=== PATIENT | female | born 1995 | race African-American/Black ===

== ENCOUNTER 2018-04-01 16:10 | Outpatient (CLI) | payer BC, OTHER | END 2018-04-01 16:11 | disposition home or self-care (01) | LOC: BICULT 16:10 | PROVIDERS: ATTEND Family Medicine | DX: M79.89 Other specified soft tissue disorders (principal) ==

== ENCOUNTER 2018-05-17 17:20 | Day surgery (SDC) | payer BC, OTHER ==
[2018-05-17 17:54] VITALS: BP 116/67; TEMP 98.9; BMI 26.9
--- NOTE | 2018-05-17 18:27 | PDOC.LDHP ---
Labor and Delivery H&P Chief complaint: loss of fluid HPI: 23 yo at 31.0w by 13.3w julio cesaro here with cc of LOF since this afternoon. She stood up at home and noted her underwear to be wet. It did not have any odor. She then had this happen on a 2nd pair of underwear and at that time called our on-call pager and was instructed to come in. She is feeling baby move , denies vaginal bleeding. She notes the discharge to be white-mucus type consistency and notes numerous yeast infections with her last . Current gestational age (weeks): 31 (31.0) Due date: 07/19/18 Dating criteria: first trimester ultrasound Grav: 5 Para: 1 (1031) Current complications: none Abnormal US findings: Yes (concern for 2VC but 3VC confirmed by MFM) Past Medical History: depression Current medications: pre-lloyd vitamins Previous surgical history: low tranverse CS, dilation and curettage Social history: none - Physical Exam Vital signs reviewed and normal: yes General: resting Heart: RRR Lungs: CTAB Abdomen: NTTP Extremeties: no edema FHT: category 1 (130/mod/+accel/no decel) [place] contractions every: none - OB Labs Blood type: A RH: positive Antibody Screen: negative HIV: negative RPR: negative HEPSAg: negative 1 hour GCT: negative GBS: unknown Rubella: immune - Assessment 23 yo F presents with vaginal discharge c/w yeast and BV 1. Vaginal discharge - No pooling or fluid with valsalva - No ferning - Will send flagyl and fluconazole - VP3 pending, will notify if any results warrant change in plan Return precautions discussed. F/u in clinic next week with Dr. Mireles <Snow Cm - Last Filed: 05/17/18 19:37> <Janis Yepez - Last Filed: 05/17/18 19:55> Allergies/Adverse Reactions: Allergies Allergy/AdvReac Type Severity Reaction Status Date / Time No Known Allergies Allergy Verified 05/17/18 17:55 Attending Addendum - Attending Addendum Date/Time: 05/17/181952 I personally evaluated the patient and discussed the management with Dr. Cm. I agree with the History, Examination, Assessment and Plan documented above with any addition or exceptions noted below. No clinical evidence of ROM on exam. Agree with d/c to home with precautions. <Janis Yepez - Last Filed: 05/17/18 19:55>
== END 2018-05-17 19:40 | disposition home or self-care (01) ==
LOC: L&D/OP 17:20
PROVIDERS: ATTEND Student in an Organized Health Care Education/Training Program
DX: O99.89 Other specified diseases and conditions complicating pregnancy, childbirth and the puerperium (principal); N89.8 Other specified noninflammatory disorders of vagina; Z3A.31 31 weeks gestation of pregnancy; Z79.899 Other long term (current) drug therapy
CPT/HCPCS: 87480; 87510; 87660; 99283

== ENCOUNTER 2018-07-19 12:46 | Inpatient (IN) | payer BC, OTHER ==
[2018-07-21] MEDS ORDERED: Promethazine HCl 25 MG/ML VIAL IM PRN (22:34)
[2018-07-21] MEDS ORDERED: Ondansetron PF 4 MG/2 ML Vial IVP PRN (22:34)
--- NOTE | 2018-07-21 22:49 | PDOC.FPROB ---
R OB H&P: HPI - History of Present Illness Chief Complaint: IOL History of Present Illness: 23 yo @ 40.2 wks by 13.3 wk sono presents for IOL. Denies contractions, vaginal bleeding, discharge. Denies current HSV lesions. Reports movement. Primary Care Physician: Haylee R OB H&P: Current - Care : 5 Para: 1 Gestational age: 40.2 Due date: 07/19/2018 Dating Criteria: 13.3 wk sono - OB Labs Blood type: A RH: positive Antibody Screen: negative HIV: negative RPR: negative HepBsAg: negative Rubella: immune Quad screen: negative Urine drug screen: not done Gonorrhea: negative Chlamydia: negative Pap Smear: 12/2017 1 hour gtt: 88 GBS: negative (@ 35.4) - First Trimester Ultrasound First trimester: 13.3 wk sono at [facility] FMR OB H&P: History - Past Medical History PMH: Genital HSV - OB History OB History: 1: 2016 @ 41.2 wks for NRFHT 2: 7.6 wk elective - ACLS NURSE History ACLS NURSE History: pap smear done 01/15/2018 - Surgical History Sx History: LTCS 2016 - Social History Social History: Denies tobacco, alcohol, drug use. - Family History Family History: Denies R OB H&P: Medications - Current Home Medications: Medication Instructions Recorded Confirmed Type 21/Iron Fu/Folic Acid 1 tab PO DAILY 05/02/16 07/21/18 History [ Complete Caplet] Allergies/Adverse Reactions: Allergies Allergy/AdvReac Type Severity Reaction Status Date / Time No Known Allergies Allergy Verified 07/21/18 23:08 R OB H&P: ROS - Review of Systems Genitourinary (Female): denies: vaginal discharge, vaginal pain, vaginal bleeding, contractions, vaginal pressure FMR OB H&P: Vital Signs - Maternal Vital signs: 115/86, 101 - Heart Tones Baseline: 135 Variability: moderate Acceleration: present Deceleration: absent Category: category 1 [place] contractions every: none FMR OB H&P: Physical Exam - Physical Exam General: awake, alert and oriented HEENT: normocephalic and atraumatic Heart: RRR, normal S1/S2, no murmurs/rubs/gallops General: CTAB, no respiratory distress Abdomen: gravid, non-tender Skin: capillary refill <2 seconds - Pelvic Exam Vulva: no discharge, no blood SVE: 0/0/-3, soft, midposition FMR OB H&P: A/P - Problem List (1) Term Status: Acute Code(s): Z34.80 - ENCOUNTER FOR SUPRVSN OF NORMAL , UNSP TRIMESTER (2) Status post primary low transverse section Status: Acute Code(s): Z98.89 - OTHER SPECIFIED POSTPROCEDURAL STATES * DO NOT USE * (3) History of herpes genitalis Status: Chronic Code(s): Z86.19 - PERSONAL HISTORY OF OTHER INFECTIOUS AND PARASITIC DISEASES Discussion: Date/Time: 07/21/182247 IOL - @ 40.2 by 13.3 wk sono. EDC 07/19/18. - GBS neg @ 35.4 wk - plan for balloon induction considering TOLAC. Unsure if will be able to pass catheter considering closed cervix. Genital HSV - on acyclovir ppx - no lesions on exam Hx of LTCS 2/2 NRFHT with compound presentation microcephaly - BPD and HC <2%tile on MFM sono 06/13/2018 - MFM not concerned for microcephaly and recommends measurements of head at delivery and days after to determine true microcephaly - sono 07/08/18 @ 38.3 wks showed BRANDIN @ upper limit normal (19.9), placenta anterior, EFW 34.1%tile TORCH labs Toxoplasma IgG - non reactive CMV IgG - positive Varicella IgG- positive Parvovirus IgG- negative Parvovirus IgM- negative This H&P was discussed with Dr. Blackwood who agree with the above documentation and plan. Attending Addendum - Attending Addendum Date/Time: 07/22/18 3502 I personally evaluated the patient and discussed the management with Dr. Andino at time of admission and discharge. I agree with the History, Examination, Assessment and Plan documented above with any addition or exceptions noted below.
[2018-07-21 23:24] VITALS: BP 115/86; TEMP 98.5; BMI 29.3
[2018-07-21 23:54] LABS: Hemoglobin 11.8 g/dL (12.0-16.0); Mean Corpuscular HGB CONC 34.7 g/dL (32.0-36.0); Mean Corpuscular Hemoglobin 34.9 pg (27.0-31.0); Mean Platelet Volume 7.5 fL (7.4-10.4); Platelet Count 275 thou/uL (130-400); RBC Distribution Width 11.6 % (11.5-14.5); Red Blood Cell (RBC) Count 3.38 mill/uL (4.20-5.40); White Blood Cell (WBC) Count 12.5 thou/uL (4.8-10.8)
[2018-07-22 00:34] LABS: HBSAg Index 0.22 S/CO (0-0.99); Hep B Surf Ag Non-Reactive S/CO (NonReactive); Syphilis Antibody Nonreactive (Nonreactive); Syphilis Antibody Index 0.06 S/CO (<1.00 Non-Reactive)
--- NOTE | 2018-07-22 00:40 | PDOC.EVN ---
Event Note - Event Note Event Note: After exam, I discussed The plan of care with Angelita. She expressed reluctance towards the balloon induction, and was still trying to decide between a delivery or . She really only wanted to try for a vaginal if she went into labor on her own, She desired to wait for spontaneous labor but noted that she wanted to follow Dr. Mireles's recommendation to not go past 41 weeks. After discussing risks/benefits/ options with her, she prefers to not have balloon induction tonight, but wait for spontaneous labor until Saturday. If labor begins before Saturday, she donna like to proceed with TOLAC; but if it doesn't, she would like a delivery on Saturday. We have scheduled her for this Saturday at 9am. Angelita's vitals are normal and the FHTs are Cat I.
== END 2018-07-22 01:13 | disposition home or self-care (01) | DRG 832 ==
LOC: L&D 07-21 22:04
PROVIDERS: ADMIT Family Medicine; ATTEND Family Medicine
DX: O48.0 Post-term pregnancy (principal); O98.313 Other infections with a predominantly sexual mode of transmission complicating pregnancy, third trimester; O34.219 Maternal care for unspecified type scar from previous cesarean delivery; Z3A.40 40 weeks gestation of pregnancy; Z53.8 Procedure and treatment not carried out for other reasons; O35.8XX0 Maternal care for other (suspected) fetal abnormality and damage, not applicable or unspecified; Z79.899 Other long term (current) drug therapy
CPT/HCPCS: 85027; 86780; 86850; 86900; 86901; 87340

== ENCOUNTER 2018-07-25 06:57 | Inpatient (IN) | payer BC, OTHER ==
[2018-07-25] MEDS: Lactated Ringer's 1,000 ML IV SCH ×2 (07:25→21:03)
[2018-07-25] MEDS ORDERED: Ondansetron PF 4 MG/2 ML Vial IVP PRN ×2 (07:50→09:48)
[2018-07-25] MEDS ORDERED: Promethazine HCl 25 MG/ML VIAL IM PRN ×2 (07:50→09:48)
--- NOTE | 2018-07-25 07:55 | PDOC.FPROB ---
FMR OB H&P: HPI - History of Present Illness Chief Complaint: here for History of Present Illness: 23 yr old at 40.6 wks by 13.3 wk sono here for repeat LTCS. Baby moving well, No LOF/VB/abnormal discharge. She had planned for TOLAC at 40.3 wks however cervix was closer and unable to place balloon so planned for section this morning. Hx of LTCS 2/2 NRFHT with compound presentation. Last delivery: Arrived to L&D for induction of labor, cytotec placed and then had tachysystole and terbutaline given. Cont to have NRFHT after and taken for section. She also has a history of genital herpes and has been on acyclovir ppx. has been relatively uncomplicated however she does have possible microcephaly as noted on MFM sono. see below for more details. Primary Care Physician: Ani Mireles MD FMR OB H&P: Current - Care : 5 Para: 1031 Gestational age: 40.6 Due date: 07/19/18 Dating Criteria: 13.3 wk sono Total weight gain: > 50 lbs - OB Labs Blood type: A RH: positive Antibody Screen: negative HIV: negative RPR: negative HepBsAg: negative Rubella: immune Quad screen: negative Gonorrhea: negative Chlamydia: negative 1 hour gtt: 88 GBS: negative H&H: 11.5 Platelets: 270 Additional labs: Toxoplasma IgG- nonreactive CMV IgG-pos Varicella IgG- pos Varicella IgM- neg parvovirus IgG- neg parvovirus IgM- neg zika- pending - First Trimester Ultrasound First trimester: 13.3 wk sono (unsure LMP) BRUNILDA 07/19/18 - Anatomy Survey Anatomy survey: 20.3 wks- concern for 2 V cord - Additional Ultrasound Additional: 28.6 wks with MFM EFW 35%, no abnormalities seen. 3v cord confirmed. anterior placenta BPD 19%tile HC <1%tile No gross anatomical abnormalities seen. Limited view of lips/spine. 34.6 wk sono with MFM BPD 2%tile HC <1 %tile EFW 24%tile (2228 g) noted to have normal head size and shape. 38.3 wk sono in clinic EFW- 3141 g 34.1 %tile FMR OB H&P: History - Past Medical History PMH: History of post depression hx of genital herpes- no current or recent outbreaks, has been on PPX - OB History OB History: # 1 (05/03/2016) delivered at 41.2 wks by emergent c section 2/2 NRFHTs- fetus found to be in compound presentation # 2 (06/08/2017) 7.6 wk elective 2 SAB - unknown time - BLOCK TESTER History BLOCK TESTER History: NILM PAP 08/2015 - Surgical History Sx History: C SECTION- 04/2016 - Social History Social History: No smoking, alcohol, or drugs - Family History Family History: Mother- HTN no diabetes, heart disease or cancer FMR OB H&P: Medications - Current Home Medications: Medication Instructions Recorded Confirmed Type 21/Iron Fu/Folic Acid 1 tab PO DAILY 05/02/16 07/25/18 History [ Complete Caplet] Allergies/Adverse Reactions: Allergies Allergy/AdvReac Type Severity Reaction Status Date / Time No Known Allergies Allergy Verified 07/21/18 23:08 FMR OB H&P: ROS - Review of Systems General: denies: fever/chills Eyes: denies: eye pain, vision changes ENT: denies: nasal congestion, rhinorrhea, ear pain, sore throat Cardiovascular: reports: palpitation (occasional palpitations when she stands quickly). denies: chest pain Respiratory: denies: cough, congestion, shortness of breath Gastrointestinal: reports: cramping, constipation. denies: abdominal pain, nausea, vomiting, diarrhea, bright red blood Genitourinary (Female): denies: dysuria, hematuria, vaginal discharge, vaginal pain, vaginal bleeding, contractions Musculoskeletal: denies: pain, swelling Neurologic: denies: headache Integumentary: denies: rash, lesions Psychological: reports: depression, anxiety FMR OB H&P: Vital Signs - Maternal Vital signs: BP 128/70, R 18, P 73, 100% on RA, T 98.2 - Heart Tones Baseline: 135 Variability: moderate Acceleration: present Category: category 1 [place] contractions every: irregular and intermittent FMR OB H&P: Physical Exam - Physical Exam General: NAD, awake, alert and oriented HEENT: normocephalic and atraumatic, PERRLA, EOMI, MMM, conjunctiva clear Neck: supple, no LAD Heart: RRR, normal S1/S2, no murmurs/rubs/gallops, pulses present, no edema General: no wheezing Abdomen: soft, gravid, non-tender, bowel sound present Musculoskeletal: pulses present, FROM in all four extremities Skin: no rash, good tugor, capillary refill <2 seconds Lymphatic: no unusual bruising or bleeding, no purpura, no petechia Psychiatric: intact recent and remote memory, good judgement and insight, normal mood and affect - Pelvic Exam Vulva: normal hair distribution, appropriate susan stage FMR OB H&P: A/P - Problem List (1) History of low transverse section Current Visit: Yes Status: Chronic Code(s): Z98.891 - HISTORY OF UTERINE SCAR FROM PREVIOUS SURGERY (2) Term Current Visit: No Status: Acute Code(s): Z34.80 - ENCOUNTER FOR SUPRVSN OF NORMAL , UNSP TRIMESTER Discussion: Date/Time: 07/25/18 0755 23 yr old at 40.6 wks by 13.3 wk sono here for repeat LTCS. sIUP -Repeat LTCS @ 9 AM this AM, orders placed -Discussed benefits and risks of surgery (bleeding, infection, damage to other structures, etc), patient OK with blood transfusion and hysterectomy if necessary -Anticipates a Male, desires circumcision -Plans to breast and bottle feed -Depot for control after delivery -Concern for microcephaly, seen by MFM- jazmin aware Hx of HSV -Has been on ppx, stopped a few days ago -C section today -No hx of LOF Hx of post depression -Follow up after delivery Dispo: admit to Obstetric service, anticipate LOS >2 midnights Attending Addendum - Attending Addendum Date/Time: 07/25/18 1350 I personally evaluated the patient and discussed the management with Dr. Guadarrama I agree with the History, Examination, Assessment and Plan documented above with any addition or exceptions noted below. 23 yr old at 40.6 wks by 13.3 wk sono here for repeat . complicated by possible microcephaly and HSV + on acyclovir prophylaxis. R/B/A of repeat were discussed with patient including but not limited to risk of bleeding, infection, damage to structures surrouding uterus, need for additional procedures, need for hysterectomy for life saving purposes. Pt verbalized understanding of this and would like to proceed with delivery
[2018-07-25] MEDS ORDERED: Bicitra 30 ML UDCUP PO SCH (08:00)
[2018-07-25] MEDS ORDERED: CEFAZOLIN/Water 2 GM/20 ML SYRINGE SLOW IVP SCH (08:00)
[2018-07-25 08:14] VITALS: BMI 29.2
[2018-07-25] MEDS ORDERED: CEFAZOLIN 2 GM/50 ML-DEXTROSE 2 GM in Premix Bag 1 BAG IVPB SCH (08:15)
[2018-07-25 08:23] LABS: Hemoglobin 11.9 g/dL (12.0-16.0); Mean Corpuscular HGB CONC 33.4 g/dL (32.0-36.0); Mean Corpuscular Hemoglobin 33.5 pg (27.0-31.0); Mean Platelet Volume 7.9 fL (7.4-10.4); Platelet Count 262 thou/uL (130-400); RBC Distribution Width 11.6 % (11.5-14.5); Red Blood Cell (RBC) Count 3.56 mill/uL (4.20-5.40); White Blood Cell (WBC) Count 13.3 thou/uL (4.8-10.8)
[2018-07-25] MEDS ORDERED: Morphine PF 1 MG/ML SYR ONE (08:43)
[2018-07-25] MEDS ORDERED: Fentanyl 100 MCG/2 ML VIAL ONE (08:43)
[2018-07-25] MEDS ORDERED: Ketorolac Tromethamine 30 MG/ML VIAL ONE ×2 (08:44→13:22)
[2018-07-25] MEDS ORDERED: Dexamethasone 4 mg/ml Vial ONE (08:44)
[2018-07-25] MEDS ORDERED: PHENYLEPHRINE-NS 100 MCG/ML 10 ML SYRINGE ONE ×2 (08:44→13:22)
[2018-07-25] MEDS ORDERED: Ondansetron PF 4 MG/2 ML Vial ONE ×2 (08:44→13:22)
[2018-07-25] MEDS ORDERED: Oxytocin 10 UNITS/ML VIAL ONE (08:44)
[2018-07-25] MEDS ORDERED: ePHEDrine/0.9% NaCl/PF SYRINGE 50 mg/10 ml ONE ×2 (08:44→13:22)
[2018-07-25 09:01] LABS: HBSAg Index 0.26 S/CO (0-0.99); Hep B Surf Ag Non-Reactive S/CO (NonReactive); Syphilis Antibody Nonreactive (Nonreactive); Syphilis Antibody Index 0.06 S/CO (<1.00 Non-Reactive)
[2018-07-25] MEDS ORDERED: Atropine Sulfate 0.4 mg/1 ml Vial ONE (09:13)
[2018-07-25] MEDS ORDERED: Eucerin (Mineral Oil/Petrolatum,White) 30 gm Jar TOP PRN (09:48)
[2018-07-25] MEDS ORDERED: diphenhydrAMINE 50 MG/ML VIAL IVP PRN (09:48)
[2018-07-25] MEDS ORDERED: Naloxone HCl 0.4 mg/ml Vial IV PRN (09:48)
[2018-07-25] MEDS ORDERED: L&D-Morphine 4 MG/ML VIAL SLOW IVP PRN (09:48)
[2018-07-25] MEDS ORDERED: Ondansetron HCl/PF 4 MG/2 ML Vial IVP PRN (09:48)
[2018-07-25] MEDS ORDERED: Promethazine HCl 25 MG SUPP PR PRN (09:48)
[2018-07-25] MEDS ORDERED: HYDROmorphone 2 MG/ML VIAL SLOW IVP PRN (09:48)
[2018-07-25] MEDS ORDERED: Naloxone HCl 0.4 mg/ml Vial IVP PRN ×2 (09:48)
[2018-07-25] MEDS ORDERED: Morphine 4 MG/ML VIAL SLOW IVP PRN (09:49)
[2018-07-25] MEDS ORDERED: Ketorolac Tromethamine 30 MG/ML VIAL IVP SCH (10:00)
[2018-07-25] MEDS ORDERED: Communication Order-Pharmacy FS SCH (10:00)
--- NOTE | 2018-07-25 10:37 | PDOC.OPDEL ---
OB Operative/Delivery Note Delivery Dr/Surgeon: Toi Assist: paul Orona Pre-Delivery Diagnosis: scheduled section Procedure/Post Delivery Dx: repeat low transverse CS Weeks gestation: 40 (40.6) Anesthesia: spinal - Findings A Sex: male (vigorous) Weight: 3691 kg - 1 min: 8 - 5 min: 9 - Additional Findings/Plan Placenta delivered: spontaneous Repaired Obstetrical Laceration: none findings: low transverse hysterotomy with extension (Rt hysterotomy extension), normal uterus, normal tubes, normal ovaries Estimated blood loss: 575 ml Compilations/Other Findings: Placenta delivered intact, will send to pathology for evaluation. Cord blood collected. Post delivery plan: routine recovery <Jocelyn Guadarrama - Last Filed: 07/25/18 10:35> Attending Addendum - Attending Addendum Date/Time: 07/25/18 1354 I was present for and assisted in the entire repeat delivery performed by Drs. Cm and Chiara. Full op report is to follow. There was a very small ( 1cm) inferiolateral hysterotomy extension due to compound and occiput posterior presentation. <Janis Yepez - Last Filed: 07/25/18 13:56>
[2018-07-25] MEDS ORDERED: Dexamethasone 20 MG/5 ML VIAL ONE (13:22)
[2018-07-25] MEDS: Ketorolac Tromethamine 30 MG/ML VIAL IVP SCH ×2 (14:06→21:02)
[2018-07-25] MEDS ORDERED: Lanolin Ointment 7 GM TUBE TOP PRN (14:42)
--- NOTE | 2018-07-25 16:08 | PDOC.PP ---
Post Progress Note Post Day #: 0, 4 hour pp note Subjective: Feeling well. Pain is increasing slightly but under control. well. Denies any noticeable bleeding. PO intake tolerated: no Flatus: no Ambulation: no Weight Weight 89.811 kg - Physical Examination General: NAD Cardiovascular: no m/r/g, RRR Respiratory: clear to auscultation bilaterally Abdominal: + bowel sounds, lochia (scant) Fundus firm & at: umbilicus Extremities: negative homans (B) Skin: no rash (bandage in place, dry) Perineum: no visible bleeding Psychiatric: A&Ox3, normal affect Result Diagrams: 07/25/18 07:43 Additional Labs: Post Labs Blood Type A POSITIVE 07/25/18 07:43 Hep Bs Antigen Non-Reactive S/CO (NonReactive) 07/25/18 07:43 (1) Status post repeat low transverse section Code(s): Z98.891 - HISTORY OF UTERINE SCAR FROM PREVIOUS SURGERY Status: Acute (2) History of low transverse section Code(s): Z98.891 - HISTORY OF UTERINE SCAR FROM PREVIOUS SURGERY Status: Chronic (3) History of herpes genitalis Code(s): Z86.19 - PERSONAL HISTORY OF OTHER INFECTIOUS AND PARASITIC DISEASES Status: Chronic - Assessment/Plan POD #0, approx 4 hours Feeling well. Continue routine pp management. Advance diet as tolerated. [place] and motrin available for pain control. Monitor lochia.
[2018-07-26] MEDS: Ibuprofen 800 MG TAB PO SCH ×3 (06:40→21:24)
[2018-07-26] MEDS: diphenhydrAMINE 25 MG CAP PO PRN ×2 (06:57→09:36)
[2018-07-26 07:05] LABS: Hemoglobin 10.4 g/dL (12.0-16.0); Mean Corpuscular HGB CONC 34.6 g/dL (32.0-36.0); Mean Corpuscular Hemoglobin 35.3 pg (27.0-31.0); Mean Platelet Volume 7.6 fL (7.4-10.4); Platelet Count 246 thou/uL (130-400); RBC Distribution Width 11.7 % (11.5-14.5); Red Blood Cell (RBC) Count 2.96 mill/uL (4.20-5.40); White Blood Cell (WBC) Count 15.3 thou/uL (4.8-10.8)
[2018-07-26] MEDS: Ketorolac Tromethamine 30 MG/ML VIAL IVP SCH ×2 (07:48→08:06)
[2018-07-26] MEDS: Lactated Ringer's 1,000 ML IV SCH ×3 (07:48→16:07)
[2018-07-26] MEDS ORDERED: Adacel (T-DAP) 0.5 ML SYRINGE IM ONE (09:00)
[2018-07-26] MEDS: Prenatal Vitamin 1 TAB PO SCH (09:34)
[2018-07-26] MEDS: HYDROcodone/Acetaminophen 5/325 mg Tablet PO PRN ×3 (09:37→20:13)
--- NOTE | 2018-07-26 10:19 | PDOC.PP ---
Post Progress Note Post Day #: 1 Subjective: Patient is doing well. She is up and moving around. Urinating well. Passing gas. Tolerating food. Pain is well controlled. PO intake tolerated: yes Flatus: yes Ambulation: yes Vital Signs (12 hours) Temp Pulse Resp BP Pulse Ox 07/26/18 07:35 98.5 F 69 16 119/60 99 07/26/18 04:00 98.6 F 75 18 105/58 L Weight Weight 89.811 kg - Physical Examination General: NAD Cardiovascular: no m/r/g, RRR Respiratory: clear to auscultation bilaterally, non-labored breathing Abdominal: + bowel sounds, lochia, appropriately TTP Fundus firm & at: just below umbilicus Extremities: negative homans (B) Skin: CS incision dry & intact (pillo present) Neurological: no gross focal deficits Psychiatric: A&Ox3 Result Diagrams: 07/26/18 06:28 Additional Labs: Post Labs Blood Type A POSITIVE 07/25/18 07:43 Hep Bs Antigen Non-Reactive S/CO (NonReactive) 07/25/18 07:43 (1) Status post repeat low transverse section Code(s): Z98.891 - HISTORY OF UTERINE SCAR FROM PREVIOUS SURGERY Status: Acute Comment: delivered via RLTCS at 40.6 wks male now PPD # 1. doing well and pain controlled. lochia down. desires either depo injection or IUD for contraception- discuss at f/u. Home either late this evening or the morning. (2) History of depression Code(s): Z87.59 - PERSONAL HISTORY OF COMP OF PREG, CHLDBRTH AND THE PUERP; Z86.59 - PERSONAL HISTORY OF OTHER MENTAL AND BEHAVIORAL DISORDERS Status: Acute Comment: monitor, doing well now. Will see for 2 wk PP visit. (3) History of herpes genitalis Code(s): Z86.19 - PERSONAL HISTORY OF OTHER INFECTIOUS AND PARASITIC DISEASES Status: Chronic <Ani Mireles - Last Filed: 07/26/18 10:18> Vital Signs (12 hours) Temp Pulse Resp BP Pulse Ox 07/26/18 11:30 98.6 F 69 16 104/61 07/26/18 07:35 98.5 F 69 16 119/60 99 07/26/18 04:00 98.6 F 75 18 105/58 L Weight Weight 89.811 kg Result Diagrams: 07/26/18 06:28 Additional Labs: Post Labs Blood Type A POSITIVE 07/25/18 07:43 Hep Bs Antigen Non-Reactive S/CO (NonReactive) 07/25/18 07:43 <Nichole Adler - Last Filed: 07/26/18 12:52> Attending Addendum - Attending Addendum Date/Time: 07/26/18 1252 I personally evaluated the patient at 1120 am and discussed the management with Dr. Mireles I agree with the History, Examination, Assessment and Plan documented above with any addition or exceptions noted below. PPD # 1 s/p repeat LTCS- recovering well. Expect d/c home tomorrow <Nichole Adler - Last Filed: 07/26/18 12:52>
--- NOTE | 2018-07-26 10:20 | DN ---
DATE OF PROCEDURE: 07/25/2018 RESIDENT SURGEON: Snow Cm M.D. WEED BURNER SURGEON: Jocelyn Guadarrama M.D. ATTENDING SURGEON: Janis Yepez D.O. PROCEDURE PERFORMED: Repeat low transverse section. PREOPERATIVE DIAGNOSES: 1. Term intrauterine . 2. Previous . 3. History of genital herpes on acyclovir ppx 4. Suspected microcephalic infant POSTOPERATIVE DIAGNOSES: 1. Term intrauterine s/p repeat LTCS 2. Previous . 3. History of genital herpes on acyclovir ppx 4. Normocephalic infant ANESTHESIA: Spinal. INDICATIONS FOR PROCEDURE: The patient is a 23-year-old female, G5, P1-0-3-1, now 2-0-3-2, at 40.6 weeks by 13.3-week ultrasound, who presents for repeat scheduled . The patient initially desired a TOLAC, however, did not spontaneously go into labor and cervix was unfavorable for induction. She was counselled regarding attempted induction versus repeat and elected at this time to proceed with repeat . DESCRIPTION OF PROCEDURE: After risks, benefits, and alternatives were explained to the patient, she gave informed consent. Preoperative antibiotics included cefazolin 2 g IV. The patient was taken to the operating room, and spinal anesthesia was initiated. She was placed in the supine position with left tilt and prepped and draped in the usual sterile fashion. A Pfannenstiel incision was made with the scalpel and carried down to the level of the fascia, which was sharply nicked. The fascial cut was extended bilaterally with Rapp scissors. The inferior and superior edges of the cut fascial edges were elevated with Get clamps, and the underlying rectus muscles were sharply and bluntly dissected free. The recti were divided digitally and retracted manually. The peritoneum was entered bluntly and retracted manually. Bladder blade was placed, and anterior uterine adhesions were noted and easily taken down with Bovie cautery. Bladder flap was unable to be created secondary to adherence of serosa. A low transverse score was made with the scalpel, and the uterus was entered in the midline with the scalpel. Clear fluid was seen. The hysterotomy was extended manually. The was noted to be vertex and occiput posterior with compound presentation with the right hand presenting and was easily delivered by fundal pressure. Mouth and nares were bulb suctioned. Cord was clamped and cut and grossly normal male was handed to the awaiting nurse. Cord blood was obtained. Placenta was manually extracted and sent to Pathology for evaluation. The uterus was externalized, and the endometrium was curetted with a dry lap. The bladder blade was replaced, and the uterus was closed with a running locking 0 Monocryl suture. Following this, hemostasis was noted. The abdomen was irrigated and suctioned free of clots. The uterus was internalized, and the hysterotomy was again noted to be hemostatic. Bo O was removed. The peritoneum was closed with a running nonlocking 2-0 chromic gut suture. The rectus muscle was approximated with a horizontal mattress 2-0 chromic suture. The fascia was closed with running nonlocking 0 Vicryl suture. Subcutaneous tissue was irrigated, and all bleeders were cauterized. The subcutaneous tissue was approximated with 3 interrupted 2-0 plain gut sutures. The skin was approximated with pillo, and a pressure dressing was applied. All counts were correct. The patient tolerated the procedure well and was taken to the recovery room in stable condition. ESTIMATED BLOOD LOSS: 575 mL. QBL: Pending. COMPLICATIONS: Anterior uterine adhesions noted, which were easily dissected down. SPECIMENS: Cord blood sent to lab for blood type, and placenta sent to Pathology for evaluation. FINDINGS: Grossly normal male with Apgars of 8 and 9 at one and five minutes respectively. Grossly normal placenta sent to Pathology. DRAINS: Torre to gravity draining clear urine with a urine output of 200 mL during the procedure. Job ID: [id number] Attending Addendum: I was present for and assisted in the entire uncomplicated repeat low transverse section performed by Marc Cm and Chiara. I agree with the above documentation. Ana THOMAS
[2018-07-26] MEDS ORDERED: Ibuprofen 800 MG TAB PO SCH (14:00)
[2018-07-27] MEDS: HYDROcodone/Acetaminophen 5/325 mg Tablet PO PRN ×4 (00:16→23:56)
[2018-07-27] MEDS ORDERED: HYDROcodone/Acetaminophen 5/325 mg Tablet PO SCH ×2 (01:30→12:00)
[2018-07-27] MEDS: Simethicone Chewable 80 MG TAB PO PRN ×2 (01:53→17:46)
[2018-07-27] MEDS: Lactated Ringer's 1,000 ML IV SCH ×3 (02:10→17:06)
[2018-07-27] MEDS: Ibuprofen 800 MG TAB PO SCH ×3 (06:01→22:06)
--- NOTE | 2018-07-27 06:59 | PDOC.PP ---
Post Progress Note Post Day #: 2 Subjective: Pain increased today but is adequately controlled with 2nd [place]. Lochia still minimal. Eating well and passing gas. No BM yet. Would like to stay until tomorrow if possible. PO intake tolerated: yes Flatus: yes Ambulation: yes Vital Signs (12 hours) Temp Pulse Resp BP Pulse Ox 07/27/18 00:00 98.1 F 75 20 107/56 L 07/26/18 20:00 98.2 F 73 20 116/66 97 Weight Weight 89.811 kg - Physical Examination General: NAD Cardiovascular: no m/r/g, RRR Respiratory: clear to auscultation bilaterally Abdominal: + bowel sounds, lochia, no distention, appropriately TTP Fundus firm & at: umbilicus Extremities: negative homans (B) Skin: CS incision dry & intact, no rash Neurological: no gross focal deficits Psychiatric: A&Ox3, normal affect Result Diagrams: 07/26/18 06:28 Additional Labs: Post Labs Blood Type A POSITIVE 07/25/18 07:43 Hep Bs Antigen Non-Reactive S/CO (NonReactive) 07/25/18 07:43 (1) Status post repeat low transverse section Code(s): Z98.891 - HISTORY OF UTERINE SCAR FROM PREVIOUS SURGERY Status: Acute (2) History of low transverse section Code(s): Z98.891 - HISTORY OF UTERINE SCAR FROM PREVIOUS SURGERY Status: Chronic (3) History of herpes genitalis Code(s): Z86.19 - PERSONAL HISTORY OF OTHER INFECTIOUS AND PARASITIC DISEASES Status: Chronic - Assessment/Plan delivered via RLTCS at 40.6 wks male infant now PPD #2 1. PPD #2 - Pain worsening today, abdominal exam benign and incision well-appearing - Suspect this is 2/2 moving around a lot yesterday and duramorph wearing off - Continue to monitor closely - Meeting all other pp milestones - Depo or IUD for pp contraception Likely D/C tomorrow <Snow Cm - Last Filed: 07/27/18 06:57> Vital Signs (12 hours) Temp Pulse Resp BP 07/27/18 00:00 98.1 F 75 20 107/56 L Weight Weight 89.811 kg Result Diagrams: 07/26/18 06:28 Additional Labs: Post Labs Blood Type A POSITIVE 07/25/18 07:43 Hep Bs Antigen Non-Reactive S/CO (NonReactive) 07/25/18 07:43 <Nichole Adler - Last Filed: 07/27/18 08:04> Attending Addendum - Attending Addendum Date/Time: 07/27/18 0802 I personally evaluated the patient and discussed the management with Dr. Cm I agree with the History, Examination, Assessment and Plan documented above with any addition or exceptions noted below. ppd #2 s/p repeat LTCS- patients pain is worsened today but abdominal exam is benign and stable vitals with minimal lochia. She was up and around all day yesterday and missed a dose or two of prn pain meds because her family and friends were here. Desires an additional day. Reassess this pm to ensure no change in abdominal exam. Encouraged to take pain meds as needed and not wait too long today. <Nichole Adler Filed: 07/27/18 08:04>
[2018-07-27] MEDS: Prenatal Vitamin 1 TAB PO SCH (08:09)
[2018-07-27] MEDS ORDERED: HYDROcodone/Acetaminophen 5/325 mg Tablet PO PRN (11:55)
[2018-07-27] MEDS ORDERED: Polyethylene Glycol 3350 17 GM Packet PO SCH (12:00)
[2018-07-27] MEDS: Polyethylene Glycol 3350 17 GM Packet PO SCH (12:15)
[2018-07-28] MEDS: Lactated Ringer's 1,000 ML IV SCH ×2 (01:35→08:23)
[2018-07-28] MEDS: Ibuprofen 800 MG TAB PO SCH (06:30)
--- NOTE | 2018-07-28 07:21 | PDOC.PP ---
Post Progress Note Post Day #: 3 Subjective: Still in some pain but only when moving. Pain meds helping. Lochia down. eating well, walking ok. No BM yet. PO intake tolerated: yes Flatus: yes Ambulation: yes Vital Signs (12 hours) Pulse Resp BP Pulse Ox 07/27/18 19:35 67 18 115/68 100 Weight Weight 89.811 kg - Physical Examination General: NAD Cardiovascular: no m/r/g, RRR Respiratory: clear to auscultation bilaterally, non-labored breathing Abdominal: + bowel sounds, lochia (decreased), appropriately TTP Deviation from normal: soft abdomen. Fundus firm & at: just below umbilicus. Extremities: negative homans (B) Skin: CS incision dry & intact Neurological: no gross focal deficits Psychiatric: A&Ox3, normal affect Result Diagrams: 07/26/18 06:28 Additional Labs: Post Labs Blood Type A POSITIVE 07/25/18 07:43 Hep Bs Antigen Non-Reactive S/CO (NonReactive) 07/25/18 07:43 (1) Status post repeat low transverse section Code(s): Z98.891 - HISTORY OF UTERINE SCAR FROM PREVIOUS SURGERY Status: Acute (2) History of depression Code(s): Z87.59 - PERSONAL HISTORY OF COMP OF PREG, CHLDBRTH AND THE PUERP; Z86.59 - PERSONAL HISTORY OF OTHER MENTAL AND BEHAVIORAL DISORDERS Status: Acute Comment: monitor, doing well now. Will see for 2 wk PP visit. (3) History of herpes genitalis Code(s): Z86.19 - PERSONAL HISTORY OF OTHER INFECTIOUS AND PARASITIC DISEASES Status: Chronic - Assessment/Plan 89 yr old on PPD # 3 s/p RLTCS at 40.6 wks. 1. PPD # 3- doing well, pain improving with pain meds. Suspect she overdid it on day 1 without taking adequate pain meds. plan for IUD at 6 wks. F/U in 2 weeks at [facility]. 2. hx of PP depression- doing well now. will f/u at 2 wks. <Ani Mireles - Last Filed: 07/28/18 08:00> Vital Signs (12 hours) Temp Pulse Resp BP Pulse Ox 07/28/18 07:43 98.7 F 65 20 103/67 99 Weight Weight 89.811 kg Result Diagrams: 07/26/18 06:28 Additional Labs: Post Labs Blood Type A POSITIVE 07/25/18 07:43 Hep Bs Antigen Non-Reactive S/CO (NonReactive) 07/25/18 07:43 <Filiberto Blackwood - Last Filed: 07/28/18 10:33> Attending Addendum - Attending Addendum Date/Time: 07/28/18 1033 I personally evaluated the patient and discussed the management with Drs. Guadarrama and Toi. I agree with the History, Examination, Assessment and Plan documented above with any addition or exceptions noted below. <Filiberto Blackwood - Last Filed: 07/28/18 10:33>
[2018-07-28 07:44] VITALS: BP 103/67; TEMP 98.7
[2018-07-28] MEDS: Prenatal Vitamin 1 TAB PO SCH (09:12)
[2018-07-28] MEDS: Polyethylene Glycol 3350 17 GM Packet PO SCH (09:12)
[2018-07-28] MEDS: HYDROcodone/Acetaminophen 5/325 mg Tablet PO PRN (09:14)
== END 2018-07-28 12:15 | disposition home or self-care (01) | DRG 787 ==
LOC: L&D 06:57 → 3SW 15:32
PROVIDERS: ADMIT Family Medicine; ATTEND Family Medicine
PROC: 10D00Z1 Extraction of Products of Conception, Low, Open Approach (ICD-10-PCS; principal; 2018-07-25)
PROC: 10907ZC Drainage of Amniotic Fluid, Therapeutic from Products of Conception, Via Natural or Artificial Opening (ICD-10-PCS; 2018-07-25)
DX: O34.211 Maternal care for low transverse scar from previous cesarean delivery (principal); O98.32 Other infections with a predominantly sexual mode of transmission complicating childbirth; Z3A.40 40 weeks gestation of pregnancy; Z37.0 Single live birth; A60.00 Herpesviral infection of urogenital system, unspecified
CPT/HCPCS: 36415; 51702; 85027; 86780; 86850; 86900; 86901; 87340; 88307; J0461; J1100; J1200; J1885; J2274; J2310; J2405; J2590; J3010

== ENCOUNTER 2019-07-17 07:52 | Emergency (ER) | payer BC, OTHER, SELFPAY ==
[2019-07-17] MEDS ORDERED: Dexamethasone 10 MG/ML VIAL ONE (08:54)
[2019-07-17] MEDS ORDERED: diphenhydrAMINE 25 MG CAP ONE (08:54)
== END 2019-07-17 09:20 | disposition home or self-care (01) ==
LOC: ERS 07:52
DX: T49.8X5A Adverse effect of other topical agents, initial encounter (principal)
CPT/HCPCS: 99283; J1100; Q0163

== ENCOUNTER 2019-10-25 10:58 | Emergency (ER) | payer SELFPAY ==
[2019-10-25] MEDS ORDERED: Acetaminophen 500 MG TAB ONE (12:07)
[2019-10-25 12:09] LABS: #Eosinphils 0.1 thou/uL (0.0-0.7); #Lymphocytes 1.8 thou/uL (1.20-3.40); #Monocytes 0.4 thou/uL (0.11-0.59); #Neutrophils 6.4 thou/uL (1.40-6.50); %Basophils 0.5 % (0.0-1.0); %Eosinophils 0.6 % (0.0-10.0); %Lymphocytes 20.5 % (21.0-51.0); %Monocytes 4.8 % (0.0-10.0); %Neutrophils 73.6 % (42.0-75.0); Mean Corpuscular HGB CONC 35.2 g/dL (32.0-36.0); Mean Corpuscular Hemoglobin 35.9 pg (27.0-31.0); Mean Platelet Volume 6.9 fL (7.4-10.4); Platelet Count 298 thou/uL (130-400); RBC Distribution Width 11.3 % (11.5-14.5); Red Blood Cell (RBC) Count 3.34 mill/uL (4.20-5.40); White Blood Cell (WBC) Count 8.6 thou/uL (4.8-10.8)
--- NOTE | 2019-10-25 12:21 | ULT ---
TRANSABDOMINAL AND TRANSVAGINAL PELVIC ULTRASOUND WITH PARRISH-SCALE AND COLOR-FLOW AND SPECTRAL DOPPLER IMAGING: HISTORY: A 24-year-old female with abdominal pain, had a medical on 10/15/2019. The patient states sh e has not been bleeding much since until this morning. She has been having vaginal bleeding with brig ht red blood and clots. The uterus measures 8.4 x 4.2 x 6 cm with a heterogeneous echotexture, likely due to fibroids. No end ometrial fluid is seen. The endometrium measures 11 mm in thickness. The right ovary measures 2.9 x 1.5 x 2.5 cm and the left ovary measures 2.7 x 1.8 x 3 cm. There is fr ee fluid adjacent to the right adnexa and the posterior cul-de-sac. Flow is demonstrated to both ovar ies. No adnexal mass is seen. IMPRESSION: 1. Small amount of free fluid in the pelvis. 2. Probable uterine fibroids. POS: NGUYEN
== END 2019-10-25 13:51 | disposition home or self-care (01) ==
LOC: ERS 10:58
DX: N93.9 Abnormal uterine and vaginal bleeding, unspecified (principal)
CPT/HCPCS: 36415; 76856; 84702; 85025; 86900; 86901

== ENCOUNTER 2019-10-27 11:07 | Emergency (ER) | payer SELFPAY ==
[2019-10-27] MEDS ORDERED: Acetaminophen 500 MG TAB ONE (12:32)
== END 2019-10-27 13:18 | disposition home or self-care (01) ==
LOC: ERS 11:07
DX: O03.9 Complete or unspecified spontaneous abortion without complication (principal)
CPT/HCPCS: 36415; 84702; 99284

== ENCOUNTER 2021-04-03 12:47 | Emergency (ER) | payer SELFPAY ==
[2021-04-04 00:29] LABS: SARS-CoV-2 PCR by NAA DETECTED (NotDetected)
== END 2021-04-03 15:01 | disposition home or self-care (01) ==
LOC: ERS 12:47
DX: U07.1 COVID-19 (principal)
CPT/HCPCS: 99283; U0003; U0005

== ENCOUNTER 2022-09-14 08:37 | Emergency (ER) | payer BC, SELFPAY ==
[2022-09-14] MEDS ORDERED: Acetaminophen 500 MG TAB ONE (08:40)
== END 2022-09-14 10:00 | disposition home or self-care (01) ==
LOC: ERS 08:37
DX: U07.1 COVID-19 (principal)
CPT/HCPCS: 99283

== ENCOUNTER 2024-05-24 09:49 | Emergency (ER) | payer SELFPAY ==
[2024-05-24] MEDS ORDERED: Acetaminophen 500 MG TAB ONE (10:13)
== END 2024-05-24 10:50 | disposition home or self-care (01) ==
LOC: ERS 09:49
DX: J02.9 Acute pharyngitis, unspecified (principal); R59.0 Localized enlarged lymph nodes
CPT/HCPCS: 87081; 87430; 99283